=== PATIENT | female | born 1990 | race Caucasian/White ===

== ENCOUNTER → 2018-04-25 16:14 | Outpatient (CLI) | payer OTHER, SELFPAY ==
[2018-04-25 21:26] LABS: Chlamydia Trachomatis by PCR Negative (Negative); Neisserai gonorrhoeae by PCR Negative (Negative); Probe Check PASS; Sample Adequacy Control PASS; Specimen Processing Control PASS
== END ==
PROVIDERS: Visit Provider Obstetrics & Gynecology
DX: Z11.3 Encounter for screening for infections with a predominantly sexual mode of transmission (principal)
CPT/HCPCS: 87491; 87591

== ENCOUNTER → 2018-05-22 16:49 | Outpatient (CLI) | payer OTHER, SELFPAY ==
[2018-05-26 08:27] LABS: HPV Reflexed? NOT INDICATED
== END ==
PROVIDERS: Visit Provider Obstetrics & Gynecology
DX: Z12.4 Encounter for screening for malignant neoplasm of cervix (principal)
CPT/HCPCS: 88175; G0145

== ENCOUNTER → 2019-05-23 | Outpatient (CLI) | payer OTHER, SELFPAY ==
[2013-12-07 02:50] VITALS: BMI 41.1
[2019-05-29 17:10] LABS: HPV Reflexed? NOT INDICATED
== END | disposition home or self-care (01) ==
LOC: LABSPEC 13:30
PROVIDERS: Visit Provider Obstetrics & Gynecology
DX: Z12.4 Encounter for screening for malignant neoplasm of cervix (principal)
CPT/HCPCS: 88175; G0145

== ENCOUNTER → 2020-09-09 10:26 | Outpatient (CLI) | payer OTHER, MEDICAID, SELFPAY ==
[2013-12-07 02:50] VITALS: BMI 41.1
[2020-09-11 08:09] LABS: Chlamydia By Nucleic Acid AMP Positive (Negative)
[2020-09-14 10:18] LABS: Gonococcus By Nucleic Acid AMP Negative (Negative)
== END ==
PROVIDERS: Visit Provider Student in an Organized Health Care Education/Training Program
DX: Z32.01 Encounter for pregnancy test, result positive (principal)
CPT/HCPCS: 87491; 87591

== ENCOUNTER → 2020-09-19 09:28 | Outpatient (CLI) | payer OTHER, SELFPAY, MEDICAID ==
[2020-09-19 12:16] LABS: Absolute Lymphocyte Count 1.42 X10^3/uL (0.83-4.51); Absolute Neutrophil Count 4.7 X10^3/uL (2.0-7.7); Basophil# 0.01 X10^3/uL; Basophil% 0.1 % (0-1); Eosinophil# 0.03 X10^3/uL; Eosinophils% 0.4 % (0-5); Hematocrit 42.8 % (37-47); Hemoglobin 14.1 g/dL (12.0-15.0); Lymphocyte # 1.42 X10^3/ul (4.0); Lymphocyte % 21.2 % (19-41); Mean Corp Hgb Conc 32.9 g/dL (32-36); Mean Corpuscular Hgb 29.2 pg (27.0-32.0); Mean Corpuscular Volume 88.6 fL (81-99); Mean Platelet Vol. 10.5 fl (6.2-12.0); Monocyte# 0.51 X10^3/uL; Monocyte% 7.6 % (0-10); NRBC Flagged by Analyzer 0 % (0-5); Neutrophil % 70.3 % (47-70); Platelet Count 278 K/mm3 (150-450); RBC Distribution Width CV 12.6 % (11.6-14.6); RBC Distribution Width SD 41.1 fl (35.1-43.9); Red Blood Count 4.83 M/mm3 (4.2-5.4); White Blood Count 6.7 K/mm3 (4.4-11.0)
[2020-09-19 12:22] LABS: Glucose Challenge Gest 1H 50g 92 mg/dL (70-140)
[2020-09-19 12:40] LABS: Hepatitis B Surface Antigen Non-Reactive (Nonreactive); Rubella IgG Reactive (Nonreactive)
[2020-09-19 13:12] LABS: HIV - WCH Non-Reactive (Nonreactive); Hepatitis C Antibody Non-Reactive (Nonreactive)
[2020-09-25 02:50] LABS: Prenatal RPR NONREACTIVE (NONREACTIVE)
== END ==
PROVIDERS: Visit Provider Student in an Organized Health Care Education/Training Program
DX: Z34.81 Encounter for supervision of other normal pregnancy, first trimester (principal)
CPT/HCPCS: 36415; 82950; 85025; 86703; 86762; 86803; 87086; 87340

== ENCOUNTER → 2020-11-14 16:09 | Outpatient (CLI) | payer OTHER, MEDICAID, SELFPAY ==
[2013-12-07 02:50] VITALS: BMI 41.1
[2020-11-18 03:06] LABS: Chlamydia By Nucleic Acid AMP Negative (Negative)
[2020-11-18 16:24] LABS: Gonococcus By Nucleic Acid AMP Negative (Negative)
== END ==
PROVIDERS: Visit Provider Student in an Organized Health Care Education/Training Program
DX: Z11.3 Encounter for screening for infections with a predominantly sexual mode of transmission (principal)
CPT/HCPCS: 87491; 87591

== ENCOUNTER → 2021-01-01 11:11 | Outpatient (CLI) | payer OTHER, MEDICAID, SELFPAY ==
[2021-01-01 13:48] LABS: Hemoglobin 11.9 g/dL (12.0-15.0); Mean Corp Hgb Conc 33.1 g/dL (32-36); Mean Corpuscular Hgb 29.5 pg (27.0-32.0); Mean Corpuscular Volume 89.1 fL (81-99); Mean Platelet Vol. 11.1 fl (6.2-12.0); Platelet Count 229 K/mm3 (150-450); RBC Distribution Width CV 13.7 % (11.6-14.6); RBC Distribution Width SD 44.7 fl (35.1-43.9); Red Blood Count 4.04 M/mm3 (4.2-5.4); White Blood Count 10.1 K/mm3 (4.4-11.0)
[2021-01-01 13:54] LABS: Glucose Challenge Gest 1H 50g 129 mg/dL (70-140)
== END ==
PROVIDERS: Visit Provider Student in an Organized Health Care Education/Training Program
DX: Z34.82 Encounter for supervision of other normal pregnancy, second trimester (principal)
CPT/HCPCS: 36415; 82950; 85027

== ENCOUNTER → 2021-03-30 13:46 | Outpatient (CLI) | payer OTHER, MEDICAID, SELFPAY ==
[2021-04-02 20:08] LABS: Chlamydia By Nucleic Acid AMP Negative (Negative)
[2021-04-03 08:30] LABS: Gonococcus By Nucleic Acid AMP Negative (Negative)
== END ==
PROVIDERS: Visit Provider Student in an Organized Health Care Education/Training Program
DX: Z36.85 Encounter for antenatal screening for Streptococcus B (principal)
CPT/HCPCS: 87081; 87491; 87591

== ENCOUNTER 2021-04-17 07:00 | Inpatient (IN) | payer OTHER, MEDICAID, SELFPAY ==
[2013-12-07 02:50] VITALS: BMI 41.1
[2021-04-17] VITALS (59 sets, daily range): BP systolic 106–144; BP diastolic 48–85; PULSE 64–125; TEMP 36.7–37.4; O2SAT 82–100; BMI 44.7
[2021-04-17] MEDS: Lactated Ringers 1,000 ML 50 ML IV (07:39)
[2021-04-17 07:55] LABS: Absolute Lymphocyte Count 1.66 X10^3/uL (0.83-4.51); Absolute Neutrophil Count 4.3 X10^3/uL (2.0-7.7); Basophil# 0.01 X10^3/uL; Basophil% 0.2 % (0-1); Eosinophil# 0.01 X10^3/uL; Eosinophils% 0.2 % (0-5); Hemoglobin 10.3 g/dL (12.0-15.0); Lymphocyte # 1.66 X10^3/ul (0.83-4.51); Lymphocyte % 25.1 % (19-41); Mean Corp Hgb Conc 32.2 g/dL (32-36); Mean Corpuscular Hgb 27.5 pg (27.0-32.0); Mean Corpuscular Volume 85.3 fL (81-99); Mean Platelet Vol. 10.9 fl (6.2-12.0); Monocyte# 0.56 X10^3/uL; Monocyte% 8.5 % (0-10); NRBC Flagged by Analyzer 0 % (0-5); Neutrophil # 4.33 X10^3/uL (2.7-7.7); Neutrophil % 65.4 % (47-70); Platelet Count 198 K/mm3 (150-450); RBC Distribution Width CV 13.6 % (11.6-14.6); Red Blood Count 3.75 M/mm3 (4.2-5.4); White Blood Count 6.6 K/mm3 (4.4-11.0)
[2021-04-17] MEDS: miSOPROStol 25 MCG TABLET VAGINAL ×2 (08:02→12:06)
--- NOTE | 2021-04-17 08:22 | PCM.HP.BLA ---
History and Physical Date of Admission: 04/17/21 Chief complaint: Induction of labor at term History of present illness: 31-year-old G3, P2 at 39 weeks and 1 day with ETHAN: 04/23/2021 by LMP arrives for induction of labor at term. Denies headache, chest pain, shortness of breath, nausea vomiting, right upper quadrant pain. Patient states good movement. is complicated by chlamydia this test of cure negative at 17 weeks Obstetric history: G1: Vacuum-assisted vaginal delivery 39 weeks complicated by polyhydramnios 11/17/2011 G2: 40 weeks 12/07/2013 Past medical history: Denies Medications: vitamin Past surgical history: Tonsils and adenoids Allergies: No known drug allergies Social history: Former smoker, denies alcohol use or drug use Family history: Denies history DVT or PE Review of systems: Besides above pertinent positives for review system was performed and found to be negative Physical exam: Vital signs: Blood pressure 116/76 pulse 99 temperature 99.4 General: Normal-appearing no acute distress HEENT: Normocephalic atraumatic no cervical lymphadenopathy Cardiac/respiratory: Nonlabored breathing, no use of accessory muscles Abdomen: Soft, nontender, gravid Extremities: No peripheral edema normal peripheral pulses Psych: Normal affect normal demeanor nonpressured speech Labs: White blood cell count 6.6, hemoglobin 10.3, hematocrit 32%, platelets 198. A+ antibody negative Assessment plan: 31-year-old G3, P2 at 39 weeks and 1 day for induction of labor at term Admit labor and delivery CEFM GBS negative Induction of labor via Cytotec Routine orders Anesthesia see
[2021-04-17] MEDS: Lactated Ringers 500 ML 999 ML IV ×2 (16:35→19:25)
--- NOTE | 2021-04-17 16:35 | PCM.PN.OB ---
Subjective Subjective Patient more uncomfortable with contractions. Objective Data Objective Data Vital Signs: Vital Signs Temp Pulse BP Pulse Ox 99.2 F H 67 129/85 H 98 04/17/21 16:05 04/17/21 16:06 04/17/21 16:05 04/17/21 16:06 Weight: 244 lb 7.882 oz Body Mass Index (BMI) 44.7 Lab / Micro Data Result Diagrams: 04/17/21 07:39 Labs: Laboratory Results - last 24 hr 04/17/21 04/17/21 07:39 07:39 WBC 6.6 RBC 3.75 L Hgb 10.3 L Hct 32.0 L MCV 85.3 MCH 27.5 MCHC 32.2 RDW Std Deviation 42.0 RDW Coeff of Noel 13.6 Plt Count 198 MPV 10.9 Immature Gran % (Auto) 0.600 Neut % (Auto) 65.4 Lymph % (Auto) 25.1 [place] % (Auto) 8.5 Eos % (Auto) 0.2 Baso % (Auto) 0.2 Absolute Neuts (auto) 4.3 Absolute Lymphs (auto) 1.66 Nucleated RBC % 0 Blood Type A POSITIVE Antibody Screen NEGATIVE Micro: Microbiology 04/17/21 07:50 Mucosa - Nose SARS-CoV-2 Antigen (Rapid) - Final Physical Exam Const alert, oriented x3 and no apparent distress HEENT normocephalic Head and Scalp: atraumatic Face and Sinus: normal facial exam Neck full ROM Resp normal respiratory effort, no retractions and no use of accessory muscles Narrative: Cervical exam: 250/-3. AROM clear fluid Extremity normal to inspection, full ROM and no clubbing, cyanosis or edema Psych mental status grossly normal, affect normal, speech normal and activity/motor behavior normal NST FHR Rate Baby A Baseline: 130 Variability:: Moderate Accelerations:: 15 x 15 Decelerations:: None Uterine Activity:: q3 minutes Assessment & Plan (1) : PLAN: Patient seen and examined. Status post 2 doses of Cytotec 25 mcg vaginally. AROM clear fluid. Will start Pitocin and titrate. Patient would like epidural, anesthesia to assess
[2021-04-17] MEDS: Ondansetron 4 MG/2 ML Vial IV (17:19)
[2021-04-17] MEDS: fentaNYL-bupivacaine (epidural) 100 ML BAG EPIDURAL (17:53)
[2021-04-17] MEDS: Oxytocin 30 units/NS 500 ml 30 UNITS/500 ML IV.SOLN IV (18:00)
[2021-04-17] MEDS: Lactated Ringers 1,000 ML 200 ML IV (18:51)
--- NOTE | 2021-04-17 21:29 | EX.PCM.OBRPT ---
Maternal Data Information Final ETHAN: 04/23/21 Gestational age: 39weeks 1 day Vaginal Delivery Maternal Presentation Maternal Presentation: Elective Induction Type of Induction: Pitocin and Amniotomy Operative Information Date of Procedure: 04/17/21 Pre-Operative Diagnosis: IUP Post-Operative Diagnosis: IUP Surgery / Procedure Performed: Spontaneous Vaginal Delivery Type of Anesthesia: Epidural Estimated Blood Loss: 250 cc Fluids Replaced: crystalloid Findings Description of Procedure: Spontaneous vaginal delivery of a viable male with Apgars of 8/9 from an occiput anterior presentation with clear amniotic fluid and normal three-vessel placenta. No episiotomy or laceration. Sponges okay. Delivery physician: Misha Navarro MD. Amniotic Membrane Rupture Type: Artificial Amniotic Fluid Description: Clear Placental Delivery Description: Spontaneous Placenta Disposition: [facility] Cord Vessel Description: 3 Vessels Cord Entanglement: Around neck x 1, tight A Gender: Male (1 minute): 8 (5 minute): 9 Post Vaginal Delivery Medications Given After Delivery: IV Pitocin Episiotomy Description: None Laceration: None Complication Complications: None
--- NOTE | 2021-04-17 21:32 | PCM.DC ---
Discharge Instructions Diet Discharge Diet: No restrictions Activity Discharge Activity: May Shower and May Take a Tub Bath May resume sexual activity in: 4-6 weeks Additional Activity Instructions:: Nothing in the vagina for 4-6 weeks. You may return to work/school in 6 weeks. Dressing / Incision Call your doctor if you observe: Inability to urinate, Inability to have a bowel movement and Using more than 1 pad per hour Follow Up Care Please Follow Up With: Misha Navarro MD When: Call [phone] to make an appointment with your doctor in 6 weeks. Test Results: Test results from this visit will be discussed in further detail at your follow-up appointment, if applicable. Discharge Plan Admission Admit Date/Time: 04/17/21 07:00 Primary Reason for Your Visit: Vaginal Delivery Attending Provider: Misha Navarro Discharge Orders/Prescriptions Prescriptions: Continued Prenatabs FA 1 TABLET tablet 1 tab PO DAILY RF: 0 omeprazole 20 MG capsule 20 mg PO DAILY RF: 0 Disposition Disposition (needs filled in before D/C Order can be placed): Home, self care
[2021-04-17] MEDS: Oxytocin 30 units/NS 500 ml 30 UNITS/500 ML IV.SOLN 334 UNITS IV (22:17)
[2021-04-18] VITALS (11 sets, daily range): BP systolic 110–127; BP diastolic 58–74; PULSE 60–94; RESP 14–16; TEMP 36.1–37.2; O2SAT 95–97
[2021-04-18] MEDS: Ibuprofen 600 MG Tablet PO ×2 (04:48→13:25)
--- NOTE | 2021-04-18 08:30 | PCM.PN.OB ---
Subjective Subjective Patient without complaints. Minimal vaginal bleeding reported. Wants to stay until tomorrow. Objective Data Objective Data Vital Signs: Vital Signs Temp Pulse Resp BP Pulse Ox 98.8 F 71 16 114/66 96 04/18/21 04:50 04/18/21 04:50 04/18/21 04:50 04/18/21 04:50 04/18/21 04:50 Oxygen Delivery Method Room Air Weight: 244 lb 7.882 oz Body Mass Index (BMI) 44.7 Intake & Output: Intake and Output for Last 24 Hours 04/16/21 04/17/21 04/18/21 23:59 23:59 23:59 Intake Total 2797.87 / 2797.87 333 / 333 Balance 2797.87 / 2797.87 333 / 333 Lab / Micro Data Result Diagrams: 04/17/21 07:39 Labs: Laboratory Results - last 24 hr 04/17/21 07:39 Blood Type A POSITIVE Antibody Screen NEGATIVE Micro: Microbiology 04/17/21 07:50 Mucosa - Nose SARS-CoV-2 Antigen (Rapid) - Final Assessment & Plan (1) : COMMENT: Doing well day #1 status post routine spontaneous vaginal delivery. Continuing present care.
[2021-04-19 03:04] VITALS: BP 144/76; PULSE 74; RESP 18; TEMP 36.6
[2021-04-19 08:48] VITALS: BP 109/67; PULSE 75; RESP 18; TEMP 36.7
--- NOTE | 2021-04-20 11:31 | PCM.PN.OB ---
Subjective Subjective This note is for April 19. Computer was not available that day on obstetrics and gynecology unit. Patient is without complaints. Breast-feeding going well. Ready to go home. Objective Data Objective Data Vital Signs: Vital Signs Temp Pulse Resp BP Pulse Ox 98.1 F 75 18 109/67 96 04/19/21 08:48 04/19/21 08:48 04/19/21 08:48 04/19/21 08:48 04/18/21 19:45 Oxygen Delivery Method Room Air Weight: 244 lb 7.882 oz Body Mass Index (BMI) 44.7 Intake & Output: Intake and Output for Last 24 Hours 04/18/21 04/19/21 04/20/21 23:59 23:59 23:59 Intake Total 333 / 333 Balance 333 / 333 Lab / Micro Data Result Diagrams: 04/17/21 07:39 Micro: Microbiology 04/17/21 07:50 Mucosa - Nose SARS-CoV-2 Antigen (Rapid) - Final Assessment & Plan (1) : PLAN: Doing well post day #2 status post routine spontaneous vaginal delivery. Will discharge to home with routine care
== END 2021-04-19 11:00 | disposition home or self-care (01) | DRG 807 ==
PROVIDERS: Student in an Organized Health Care Education/Training Program; Admitting Provider Obstetrics & Gynecology; PCP Family Medicine; Visit Provider Obstetrics & Gynecology
DX: O80 Encounter for full-term uncomplicated delivery (principal); Z37.0 Single live birth; Z3A.39 39 weeks gestation of pregnancy; Z87.891 Personal history of nicotine dependence; Z87.42 Personal history of other diseases of the female genital tract
CPT/HCPCS: 59025; 59050; 85025; 86850; 86900; 86901; 87426; 99218; J7120; G0378; J2405

== ENCOUNTER 2021-04-22 10:40 | Emergency (ER) | payer OTHER, MEDICAID, SELFPAY ==
[2021-04-17 07:10] VITALS: BMI 44.7
[2021-04-22 10:40] VITALS: BP 127/74; PULSE 82; RESP 15; TEMP 36.6; O2SAT 97; BMI 42.0
--- NOTE | 2021-04-22 11:00 | CT_ITS ---
STUDY: CT ABDOMEN AND PELVIS WITH CONTRAST REASON FOR EXAM: Female, 31 years old. Right lower quadrant abdominal pain and shortness of breath. The patient is status post 5 days post vaginal delivery. RADIATION DOSAGE (If Supplied By Facility): CTDIvol = ( 16.94 ) mGy, DLP = ( 1220.69 ) mGycm TECHNIQUE: Transaxial images were obtained from the dome of the diaphragm to the symphysis pubis without oral contrast. Oral and amp; IV Gastrografin and amp; 100mL Isovue-300 was administered. Sagittal and coronal images were reconstructed. Individualized dose optimization techniques were used for this CT. COMPARISON: None. FINDINGS: The visualized lung bases are unremarkable. The visualized portions of the heart are within normal limits. Normal liver. Normal gallbladder and extrahepatic biliary system. Normal spleen. Normal pancreas. Normal bilateral adrenal glands. Normal right kidney. Normal left kidney. There is a small hiatal hernia. Normal small intestine. Normal colon. The appendix is visualized and appears normal. Normal abdominal aorta. Normal inferior vena cava. There is borderline retroperitoneal lymphadenopathy with enlarged nodes no greater than 10mm in the short axis diameter. Normal urinary bladder. Diffuse enlargement of the uterus in keeping with the patient''s history of recent vaginal delivery. There is a small umbilical hernia containing fat. Normal osseous structures. CT/Abdomen/Pelvis WITH Contrast IMPRESSION: Diffusely enlarged uterus in keeping with the recent vaginal delivery. Electronically Signed: Dio Meyers MD at 13:08 EDT , Service support ,
--- NOTE | 2021-04-22 11:11 | ED.VIS.GI ---
HPI HPI - GI History of Present Illness Chief Complaint: Abd Pain Informant: patient Abdominal Pain/Flank Pain Onset: Yesterday Context: Sudden Onset Timing: Continuous Quality: Sharp and Stabbing Location: RLQ and LLQ Worsened by: Nothing Relieved by: Nothing Nausea/Vomiting/Emesis GI Symptom: Positive for Nausea; Negative for Vomiting Diarrhea/Melena/Hematochezia GI Symptom: Negative for Diarrhea, Melena and Hematochezia Associated Symptoms Associated Symptoms: Negative for Dysuria and Hematuria Narrative Narrative: Patient presents with abdominal pain that began yesterday. Patient states the pain began on her left lower abdomen yesterday. Patient states that today the pain is on her right lower abdomen. Patient describes the pain as sharp and stabbing. Patient states nothing makes it better nothing makes it worse. Patient admits to nausea but denies any vomiting. Patient denies any dysuria or hematuria. Patient states she delivered a baby 5 days ago. Patient states there was no problems during the or delivery. Patient states the baby is doing well but has mild jaundice. PFSH PFS Medical History Chlamydia infection affecting Home Medications cephalexin 500 mg PO Q6 #12 capsule 04/22/21 [Rx Last Taken Unknown] Allergy/AdvReac Type Severity Reaction Status Date / Time No Known Allergies Allergy Verified 04/22/21 10:43 Surgical History History of surgery Social History Smoking Status: Former smoker ROS ROS ED Constitutional Constitutional ED: Denies chills or fever(s) Eyes Eyes: Denies blurry vision or change in vision ENT ENT ED: Denies rhinorrhea or sore throat Cardiovascular Cardiovascular: Denies chest pain or palpitations Respiratory/Chest Respiratory/Chest: Denies cough or dyspnea Gastrointestinal Gastrointestinal: Reports abdominal pain and nausea; Denies vomiting Genitourinary Genitourinary ED: Denies dysuria or hematuria Musculoskeletal Musculoskeletal: Denies back pain or neck pain Integumentary Denies abscess or rash Neurologic Neurologic: Reports weakness; Denies headache(s) Allergic/Immunologic Allergic/Immunologic ED: Denies mouth swelling or urticaria EXAM Physical Exam Const Vital Signs: 04/22/21 10:40 06/16/21 13:00 Temperature 97.9 F Temperature Source Temporal Pulse Rate 82 4 L Respiratory Rate 15 18 Blood Pressure 127/74 H 103/61 Blood Pressure Mean 91 75 Pulse Ox 97 100 Oxygen Delivery Method Room Air Room Air Positive well nourished, well developed and obese General Appearance ED: well developed Nutritional Appearance: obese HEENT Reports moist mucous membranes Neck supple and no JVD Resp normal respiratory effort and clear to auscultation bilaterally Cardio regular rate and regular rhythm GI non-distended Auscultation: normoactive bowel sounds Palpation: soft and tender LLQ and RLQ; Negative for guarding or rebound tenderness present Neuro CN's II-XII intact bilaterally, moves all extremities and no sensory deficits noted Sensorium / Orientation: alert, oriented to person, oriented to place and oriented to time Psych mental status grossly normal MDM MDM MDM Narrative Medical decision making narrative: Patient was given IV fluids and Zofran. Patient declined morphine because she does not want to discard her breast milk. Patient is feeling better on reevaluation. CBC was within normal limits. Comprehensive metabolic profile was normal. Urinalysis shows leukocyte esterase of 100 with 10-[address] scan of the abdomen and pelvis was obtained. There is no acute intra-abdominal process. This was interpreted by the radiologist and reviewed by myself. Patient was given a dose of Keflex here. Patient was given a prescription for Keflex. Patient was instructed to follow-up with her primary care physician in 3 to 5 days. Patient understood and was agreeable with the plan. All questions were answered. Lab Data Attestation: I reviewed the patient's lab results. Labs: Laboratory Results - last 24 hr 04/22/21 04/22/21 04/22/21 11:25 11:25 11:59 WBC 7.8 RBC 4.27 Hgb 11.8 L Hct 37.0 MCV 86.7 MCH 27.6 MCHC 31.9 L RDW Std Deviation 43.0 RDW Coeff of Noel 13.8 Plt Count 255 MPV 9.7 Immature Gran % (Auto) 0.800 Neut % (Auto) 79.0 H Lymph % (Auto) 11.4 L [place] % (Auto) 7.0 Eos % (Auto) 1.5 Baso % (Auto) 0.3 Absolute Neuts (auto) 6.1 Absolute Lymphs (auto) 0.88 Nucleated RBC % 0 Sodium 141 Potassium 3.8 Chloride 109 H Carbon Dioxide 25.0 Anion Gap 7 BUN 9 Creatinine 0.69 Estim Creat Clear Calc 92.58 Est GFR (MDRD) Af Amer 126 Est GFR (MDRD) Non-Af 104 BUN/Creatinine Ratio 13.0 Glucose 104 Calcium 8.9 Total Bilirubin 0.30 AST 10 L ALT 17 Alkaline Phosphatase 111 Total Protein 7.1 Albumin 2.9 L Globulin 4.2 Albumin/Globulin Ratio 0.7 L Urine Color Yellow Urine Clarity Clear Urine pH 6.0 Ur Specific [place] 1.015 Urine Protein 30 H Urine Glucose (UA) Normal Urine Ketones Negative Urine Occult Blood 250 H Urine Nitrite Negative Urine Bilirubin Negative Urine Urobilinogen Normal Ur Leukocyte Esterase 100 H Urine RBC 0 SEEN Urine WBC 10-25 SEEN Ur Squamous Epith Cells 0-5 SEEN Urine Bacteria 0 SEEN Urine Mucus 0 SEEN Radiography Diagnostic Testing: Radiology Impression Abdomen/Pelvis CT 04/22/21 11:00 IMPRESSION: Diffusely enlarged uterus in keeping with the recent vaginal delivery. Electronically Signed: Dio Meyers MD at 13:08 EDT , Service support , Discharge Plan Triage Chief Complaint: Abd Pain ED Provider: Dewayne Yao Dx/Rx/DC Orders Clinical Impression: Urinary tract infection Instructions: ED Bladder Infection, Female (Adult) Prescriptions: New cephalexin [cephalexin] 500 MG capsule 500 mg PO Q6 Qty: 12 RF: 0 Primary Care Provider: Linda Woods NP Referrals: Linda Woods NP, [employer] [Primary Care Provider] - 3-5 Days Disposition Disposition: Home, self care
[2021-04-22] MEDS: Ondansetron 4 MG/2 ML Vial IV (11:24)
[2021-04-22] MEDS: 0.9% Normal Saline 1,000 ML 1000 ML IV (11:24)
[2021-04-22 11:31] LABS: Absolute Lymphocyte Count 0.88 X10^3/uL (0.83-4.51); Absolute Neutrophil Count 6.1 X10^3/uL (2.0-7.7); Basophil# 0.02 X10^3/uL; Basophil% 0.3 % (0-1); Eosinophil# 0.12 X10^3/uL; Eosinophils% 1.5 % (0-5); Hemoglobin 11.8 g/dL (12.0-15.0); Lymphocyte # 0.88 X10^3/ul (0.83-4.51); Lymphocyte % 11.4 % (19-41); Mean Corp Hgb Conc 31.9 g/dL (32-36); Mean Corpuscular Hgb 27.6 pg (27.0-32.0); Mean Corpuscular Volume 86.7 fL (81-99); Mean Platelet Vol. 9.7 fl (6.2-12.0); Monocyte# 0.54 X10^3/uL; NRBC Flagged by Analyzer 0 % (0-5); Neutrophil # 6.13 X10^3/uL (2.7-7.7); Platelet Count 255 K/mm3 (150-450); RBC Distribution Width CV 13.8 % (11.6-14.6); Red Blood Count 4.27 M/mm3 (4.2-5.4); White Blood Count 7.8 K/mm3 (4.4-11.0)
[2021-04-22 11:50] LABS: ALB/GLOB Ratio 0.7 RATIO (0.9-2.4); AST(SGOT) 10 U/L (15-37); Alanine Aminotransfer ALT/SGPT 17 U/L (13-56); Albumin, Serum 2.9 g/dL (3.2-5.0); Alkaline Phosphatase 111 U/L (45-117); Anion Gap 7 (5-15); BUN 9 mg/dL (7-18); Calcium,Total 8.9 mg/dL (8.5-10.1); Chloride 109 mmol/L (98-107); Creatinine, Serum 0.69 mg/dL (0.55-1.02); EST Glomerular Filtration Rate 104 mL/min (>60); Est Glom Filt Rate - Afr Amer 126 mL/min (>60); Estimated Creatinine Clearance 92.58 ml/min; Globulin 4.2 g/dL (2.2-4.2); Glucose 104 mg/dL (74-106); Potassium 3.8 mmol/L (3.5-5.1); Protein, Total 7.1 g/dL (6.4-8.2); Sodium Level 141 mmol/L (136-145)
[2021-04-22 12:06] LABS: Bacteria 0 SEEN /hpf (None Seen); Mucous, Urine 0 SEEN /hpf (<or=2+); Red Blood Cells-Urine 0 SEEN /hpf (0-5)
[2021-04-22 12:08] LABS: Color, Urine Yellow (Yellow); Glucose, Dipstick Normal (Normal); Ketone-Dipstick Negative (Negative); Leukocyte Esterase-Dipstick 100 /ul (Negative); Nitrite-Dipstick Negative (Negative); Occult Blood-Urine 250 /ul (Negative); Protein-Dipstick 30 mg/dl (Negative); Specific Gravity, Urine 1.015 (1.002-1.030); Urine Bilirubin Dipstick Negative (Negative); Urine Clarity Clear (Clear); Urine Urobilinogen Normal (Normal)
[2021-04-22 12:14] LABS: Squamous Epithelial Cells - UA 0-5 SEEN /hpf (5-10); White Blood Cells 10-25 SEEN /hpf (0-5)
[2021-04-22 13:00] VITALS: BP 103/61; PULSE 4; RESP 18; O2SAT 100
[2021-04-22] MEDS: Cephalexin 500 MG Capsule PO (14:02)
[2021-04-22 14:08] VITALS: BP 115/82; PULSE 91; RESP 18; O2SAT 98
== END 2021-04-22 14:09 | disposition home or self-care (01) ==
PROVIDERS: Emergency Provider Emergency Medicine; PCP Nurse Practitioner Family
DX: N39.0 Urinary tract infection, site not specified (principal); Z87.891 Personal history of nicotine dependence
CPT/HCPCS: 74177; 80053; 81001; 85025; 96374; 99283; J7030; Q9967; A4216; J2405

== ENCOUNTER → 2021-06-26 16:12 | Outpatient (CLI) | payer OTHER, MEDICAID, SELFPAY ==
[2021-06-29 20:08] LABS: Chlamydia By Nucleic Acid AMP Negative (Negative)
[2021-06-29 20:31] LABS: Gonococcus By Nucleic Acid AMP Negative (Negative)
== END ==
PROVIDERS: PCP Nurse Practitioner Family; Visit Provider Obstetrics & Gynecology
DX: Z11.3 Encounter for screening for infections with a predominantly sexual mode of transmission (principal)
CPT/HCPCS: 87491; 87591

== ENCOUNTER → 2023-05-12 | Outpatient (CLI) | payer OTHER, MEDICAID, SELFPAY ==
[2023-05-17 12:09] LABS: HPV APTIMA, High Risk Negative (Negative)
== END | disposition home or self-care (01) ==
LOC: LABSPEC 14:42
PROVIDERS: PCP Nurse Practitioner Family; Visit Provider Nurse Practitioner Women's Health
DX: Z01.419 Encounter for gynecological examination (general) (routine) without abnormal findings (principal)
CPT/HCPCS: 87624; 88175; G0145